=== PATIENT | male | born 1995 | race Caucasian/White ===

== ENCOUNTER 2021-01-23 09:25 | Outpatient (CLI) | payer OTHER, MEDICAID, SELFPAY ==
[2021-01-24 12:53] LABS: COVID-19 RT-PCR UVMMC Result Negative (Negative)
== END 2021-01-23 09:26 | disposition home or self-care (01) ==
LOC: LBO 09:25
PROVIDERS: PCP Family Medicine; Visit Provider Nurse Practitioner Family
DX: Z20.828 Contact with and (suspected) exposure to other viral communicable diseases (principal)
CPT/HCPCS: U0003

== ENCOUNTER 2022-04-15 01:49 | Outpatient (CLI) | payer OTHER, MEDICAID, SELFPAY ==
[2022-04-15 13:40] LABS: Calculated LDL 90 mg/dL (<100); Cholesterol 154 mg/dL (<200); HDL Cholesterol 45 mg/dL (40-60); Triglyceride 96 mg/dL (<150)
== END 2022-04-15 01:50 | disposition home or self-care (01) ==
LOC: LBO 01:49
PROVIDERS: PCP Nurse Practitioner Family; Visit Provider Nurse Practitioner Family
DX: Z13.220 Encounter for screening for lipoid disorders (principal)
CPT/HCPCS: 36415; 80061

== ENCOUNTER 2023-06-17 16:57 | Emergency (ER) | payer OTHER, MEDICAID, SELFPAY ==
[2023-06-17] VITALS (71 sets, daily range): BP systolic 100–146; BP diastolic 52–90; PULSE 143–165; RESP 16–53; TEMP 37.2; O2SAT 93–100
--- NOTE | 2023-06-17 17:00 | RT.EKG_ITS ---
APPROVED REPORT Exam: Resting ECG Reason for Exam: tachycardia Patient Location: E HR:149 bpm ECG Measurements Heart Rate 149 AXIS TN 102 P -20 QRSd 99 QRS 46 QT 351 T 57 QTc 552 Conclusion Sinus tachycardia...rate> 99 Left atrial enlargement...P, P'>60mS, <-0.15mV V1 Prolonged QT interval...QTc >488mS sinus tach, normal axis, rate related lateral st depressions
--- NOTE | 2023-06-17 17:36 | DI.CT_ITS ---
Exam(s) CT CHEST PE ABD PELVIS W EXAM: CT CHEST PE ABD PELVIS W CLINICAL HISTORY: shortness of breath, weakness, abdominal pain, rug. TECHNIQUE: Imaging Protocol: Axial CT angiography was performed with multi-slice acquisition and mu lti-planar and/or 3D reconstructions. CONTRAST MATERIAL: Intravenous: Omnipaque 350 Contrast volume:100 ml COMPARISON: No exams were available for comparison FINDINGS: Exam is limited by patient motion. CHEST: Pulmonary Arteries: No evidence of central filling defects to suggest pulmonary emboli. Distal vess els difficult to evaluate due to motion. Tracheobronchial tree: No bronchiectasis or mucus plugging. Mediastinum and [place]: No dominant adenopathy or fluid collection. Pulmonary parenchyma: Respiratory motion. No consolidation or dominant measurable mass. Pleura: No effusion. No pneumothorax. Heart: The heart is notdilated. No coronary artery calcifications are seen. Aorta: Thoracic aorta non-dilated. Bones: Unremarkable for age. Tubes, Catheters, and Lines: None. ABDOMEN and PELVIS: Liver: Significant motion artifact. Normal size. Normal density. No suspicious measurable mass. Portal, Superior Mesenteric, and Splenic Veins: Unremarkable. Gallbladder and Biliary Tract: No radiodense calculus. No biliary dilatation. Pancreas: Normal density, no abnormal calcifications or inflammatory process. Spleen: Normal. Adrenals: No masses seen. Kidneys: Normal size, contour and axis. No radiodense stones. No obstructive uropathy. No masses seen . Vasculature: Abdominal portion non-dilated. Bowel: No obstruction or bowel wall thickening. Appendix is unremarkable. Normal quantity of stool Peritoneal Cavity: No ascites, collection or mesenteric inflammatory response. Lymph Nodes: Within normal limits. Soft Tissues: Unremarkable. Bladder: Somewhat over distended. Symmetric distention, no gross wall thickening. Reproductive Organs: Unremarkable as visualized. Lymph Nodes: Within normal limits. Bones: Unremarkable for age.. IMPRESSION: 1. Limited exam due to motion. No gross evidence of pulmonary embolism or other acute abnormality in the chest.. 2. No acute abdominal or pelvic process. RADIATION DOSE DELIVERED: 1,535.13mGy.cm Total DLP DATA REPOSITORY: All CT scans at this facility are submitted to the National Radiology Data Registry (NRDR) Dose Index Registry (DIR) with the [employer] (A[employer]). RADIATION OPTIMIZATION: All CT scans at this facility use at least one of these dose optimization te chniques: automated exposure control; mA and/or kV adjustment per patient size (includes targeted exa ms where dose is matched to clinical indication); or iterative reconstruction.
[2023-06-17 17:48] LABS: Abs Immature Grans 0.91 10^3/uL (0.0-0.06); HCT 54.2 % (40.0-50.0); HGB 18.4 g/dL (13.5-17.5); MCH 28.2 pg (27.0-33.0); MCHC 33.9 % (32.0-36.0); MCV 83 fL (80-95); MPV 10.4 fL (8.0-11.0); Platelet Count 447 10^3/uL (130-400); RBC 6.53 10^6/uL (4.36-5.78); RDW 13.3 % (11.8-14.1); RDW-SD 39.1 fL
[2023-06-17 17:48] LABS: BE (Venous) -28 mmol/L (-2-3); HCO3 (Venous) 5 mmol/L (23-28); O2 Sat (Venous) 86 %; TCO2 (Venous) 5 mmol/L (24-29); pCO2 (Venous) 22 mmHg (41-51); pO2 (Venous) 60 mmHg
[2023-06-17 17:52] LABS: pH (Venous) 6.94 (7.31-7.41)
[2023-06-17 17:54] LABS: WBC 38.56 10^3/uL (4.4-10.8)
[2023-06-17 17:59] LABS: Magnesium 2.8 mg/dL (1.8-2.4)
[2023-06-17] MEDS: Lactated Ringers 1,000 ML 1000 ML IV ×2 (18:01→18:05)
[2023-06-17 18:05] LABS: ALT 25 U/L (16-63); AST 6 U/L (15-37); Albumin 5.1 g/dL (3.4-5.0); Alkaline Phosphatase 132 U/L (46-116); Anion Gap 36.3 mmol/L (3-11); BUN 16 mg/dL (7-18); Bilirubin, Total 0.8 mg/dL (0.2-1.0); CO2 7.7 mmol/L (21.0-32.0); CREATININE 2.1 mg/dL (0.70-1.30); Calcium 9.7 mg/dL (8.5-10.1); Chloride 95 mmol/L (98-107); Estimated GFR 43.43 (mL/min/1.73m2); Lipase 61 U/L (16-77); Potassium 4.3 mmol/L (3.5-5.1); Sodium 139 mmol/L (136-145); Total Protein 9.8 g/dL (6.4-8.2)
[2023-06-17] MEDS: cefTRIAXone 2 GM/50 ML BAG IVPB (18:05)
[2023-06-17 18:07] LABS: Glucose 671 mg/dL (74-106)
[2023-06-17] MEDS: Metoclopramide 10 MG/2 ML VIAL IVP ×2 (18:13→20:47)
[2023-06-17] MEDS: Pantoprazole 40 MG VIAL 80 MG IVP (18:20)
[2023-06-17 18:22] LABS: Absolute Lymphocyte Count 2.31 10^3/uL (1.2-3.4); Absolute Monocyte Count 1.54 10^3/uL (0.1-0.8); Absolute Neutrophil Count 34.32 10^3/uL (1.2-6.7); Diff Comment Manual Differential; RBC Morphology Normal
[2023-06-17 18:23] LABS: Promyelocytes % 1
[2023-06-17] MEDS: Normal Saline - Diluent 50 ML VIAL IJ (18:42)
[2023-06-17] MEDS: Omnipaque 350 MG/ML 100 ML BTL IJ (18:43)
[2023-06-17] MEDS: Normal Saline Flush 10 ML SYR IVP (18:44)
[2023-06-17 18:55] LABS: COVID-19 PCR Negative (Negative); Influenza A PCR Negative (Negative); Influenza B PCR Negative (Negative); RSV PCR Negative (Negative)
[2023-06-17 18:57] LABS: Source Nasopharynx
[2023-06-17] MEDS: INSULIN REGULAR IN 0.9 % NACL 100 UNIT/100 ML BAG 10.387 UNIT IV (19:07)
[2023-06-17 19:15] LABS: BE (Venous) -29 mmol/L (-2-3); HCO3 (Venous) 4 mmol/L (23-28); O2 Sat (Venous) 81 %; TCO2 (Venous) 4 mmol/L (24-29); pCO2 (Venous) 21 mmHg (41-51); pO2 (Venous) 54 mmHg
[2023-06-17 19:19] LABS: pH (Venous) 6.89 (7.31-7.41)
[2023-06-17] MEDS: POTASSIUM CHLORIDE/0.45% NACL 1,000 ML 500 MEQ IV ×2 (19:30→23:17)
[2023-06-17 19:34] LABS: Anion Gap 33.4 mmol/L (3-11); BUN 17 mg/dL (7-18); CO2 5.6 mmol/L (21.0-32.0); CREATININE 1.7 mg/dL (0.70-1.30); Calcium 8.6 mg/dL (8.5-10.1); Chloride 100 mmol/L (98-107); Estimated GFR 55.96 (mL/min/1.73m2); Potassium 4.3 mmol/L (3.5-5.1); Sodium 139 mmol/L (136-145)
[2023-06-17 19:35] LABS: Bilirubin Negative (Negative); Blood Small (Negative); Clarity Clear (Clear); Glucose 500 mg/dL (Negative); Ketones >=160 mg/dL (Negative); Leukocyte Esterase Negative (Negative); Nitrite Negative (Negative); Specific Gravity >= 1.030 (1.005-1.025); Urobilinogen 0.2 mg/dL (Up to 0.2); pH 5.5 (5-8)
[2023-06-17 19:38] LABS: Glucose 656 mg/dL (74-106)
[2023-06-17 19:51] LABS: Bacteria Negative HPF (Negative); C & S Indicated? No; Casts 0-2 Hyaline LPF (Negative); Crystals Negative HPF (Negative); Epithelial Cells Negative HPF (Negative); Mucus Negative (Negative); RBC 0-2 HPF (0-2); WBC 0-2 HPF (0-5)
[2023-06-17] MEDS: Normal Saline 1,000 ML 1000 ML IV (20:00)
[2023-06-17] MEDS: Sodium Bicarbonate 50 MEQ/50 ML VIAL 100 MEQ IJ (20:07)
--- NOTE | 2023-06-17 20:30 | DI.RAD_ITS ---
Exam(s) XR PORTABLE CHEST AP POST LINE EXAM: XR PORTABLE CHEST AP POST LINE CLINICAL HISTORY: central line placement TECHNIQUE: 2D digital imaging was performed. COMPARISON: No exams were available for comparison FINDINGS: Exam is limited by poor pulmonary inflation and respiratory motion. Leads overlie the chest. A right internal jugular central venous catheter has been inserted with the tip in the upper right at rium. LUNGS: Clear. No pleural abnormality seen. HEART: Normal size. AORTA: Normal diameter. BONES: Unremarkable for age. Soft tissues: Unremarkable. IMPRESSION: Satisfactory positioning of internal jugular central venous catheter. DATA REPOSITORY: RADIATION DOSE DELIVERED:
--- NOTE | 2023-06-17 20:38 | W.ED.PROC ---
Date of service: 06/17/23 Time of Service: 20:38 Procedures Central Line Placement Right IJ: Time Out Performed: Yes Patient Placed on Monitor/Pulse Ox: Yes MD Prep: mask, gown and gloves Central Line Prep: Chlorhexidine scrub Local Anesthetic: Lidocaine 1% Amount of anesthesia used (mL): 3 Ultrasound Used for Placement: Yes Central Line Lumen Inserted: triple Post Procedure: good blood return, all ports aspirated, flushed, capped and sutured in place with 3-0 nylon Post Procedure X-Ray: tip of catheter in good position Patient Tolerated Procedure: well Complications: none Medical Decision Making Central line placed to aid multiple infusions in critically ill patient with DKA.
[2023-06-17 20:44] LABS: BE (Venous) -29 mmol/L (-2-3); HCO3 (Venous) 3 mmol/L (23-28); O2 Sat (Venous) 91 %; TCO2 (Venous) 3 mmol/L (24-29); pO2 (Venous) 66 mmHg
[2023-06-17 20:46] LABS: pH (Venous) 6.95 (7.31-7.41)
[2023-06-17 20:47] LABS: pCO2 (Venous) 16 mmHg (41-51)
--- NOTE | 2023-06-17 21:17 | DI.VRAD_ITS ---
PROCEDURE INFORMATION: Exam: XR Chest Exam date and time: 06/17/2023 8:40 PM Age: 27 years old Clinical indication: Other: Central line placement TECHNIQUE: Imaging protocol: Radiologic exam of the chest. Views: 1 view. COMPARISON: CT CHEST PE ABD PELVIS W 06/17/2023 6:33 PM FINDINGS: Tubes, catheters and devices: Right IJ central venous catheter in good position with the tip near the cavoatrial junction. Lungs: Lung volumes are low. No active pulmonary infiltrate or significant atelectasis. Pleural spaces: Unremarkable. No pleural effusion. No pneumothorax. Heart/Mediastinum: Unremarkable. No cardiomegaly. Bones/joints: Unremarkable. IMPRESSION: Right IJ central line in good position. Dictated and Authenticated by: Chad White MD. Ordering:BRYSON Islas MD
[2023-06-17 21:22] LABS: Glucose 534 mg/dL (74-106)
[2023-06-17 22:34] LABS: Glucose 451 mg/dL (74-106)
--- NOTE | 2023-06-17 23:24 | W.PM.HP.N ---
Date of service: 06/17/23 Time of Service: 23:25 Assessment and Plan Assessment and plan (1) DKA (diabetic ketoacidosis): Status: Acute Assessment and plan: The diabetic ketoacidosis have been severe. He has not been responding well to intravenous fluids and intravenous bicarbonate. His blood sugars have improved with intravenous fluids and intravenous insulin. He has received both normal saline and half-normal saline with potassium chloride. His urine output has been relatively low. He still appears dehydrated. I discussed the situation with the patient and his parents. I think because of the lack of prompt response to the treatment has been provided that we should transfer the patient to [facility]. I have been in contact with the intensive care team there and they are in agreement with myself that transfer there would be appropriate. They are working on bed availability now. The family is in agreement to have the patient transferred and the patient agrees at this time also. I will give the patient more intravenous fluids and continue the monitoring of his blood sugars and metabolic status and clinical course. He has remained tachycardic although his blood pressure is stable. The patient does agree to have a urinary catheter placed for close monitoring of his urine output. This catheter has been placed. (2) Leukocytosis: Status: Acute Assessment and plan: There is no clear source infectious source for the leukocytosis. I suspect that it is due to the diabetic ketoacidosis. He has been given a dose of ceftriaxone here in the emergency department. History of Present Illness History of Present Illness Chief Complaint: Abdominal pain, nausea and vomiting. Narrative: This 27-year-old male is here with his parents. He lives with them. He has history of high functioning autism, attention deficit disorder and depression. His past medical history is significant for epilepsy as a child but no seizures since age 5. He has had surgeries of tonsillectomy and adenoidectomy. His mother was diagnosed with diabetes at age 7 and is insulin-dependent. His current illness started about 5 days ago when he went to [facility] and vomited after he went there. He had no further vomiting and felt well until yesterday morning when he says his abdomen bothering him some. He developed some nausea and vomited last night. He says he has been drinking extra water over the last couple months and has noted some increased urination for about the same length of time. He had increased nausea and vomiting today and his parents brought him here. He was found to be in diabetic ketoacidosis. There was some coffee ground emesis once here. He has received Normal Saline IV, 1/2 Normal Saline IV with 20 meqKCL/l, IV Ceftriaxone, IV pantoprazole, IV bicarb infusion, IV insulin infusion and repeated lab studies and IV reglan and IV compazine. As noted above he lives with his parents. He occasionally drinks alcohol and does not use tobacco. 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 He has had his COVID boosters and vaccine. He has no allergies. Review of Systems Constitutional Constitutional: Denies chills, Denies fever(s), Denies poor appetite, Denies weakness and Denies weight loss Cardiovascular Cardiovascular: Denies chest pain with activity, Denies syncope, Denies rapid heart rate and Denies dyspnea Respiratory Respiratory: Denies cough, Denies dyspnea and Denies wheezing Gastrointestinal Gastrointestinal: Reports abdominal pain, Denies hematochezia, Denies diarrhea, Denies loose stools, Reports nausea and Reports vomiting Genitourinary Genitourinary: Denies oliguria, Denies difficulty urinating and Reports urinary frequency Musculoskeletal Musculoskeletal: Reports system reviewed and no additional complaints, except as documented Neurologic Neurologic: Denies syncope and Denies weakness Endocrine Endocrine: Reports polyuria Allergic/Immunologic Allergic/Immunologic: Denies wheezing PFSH All Active Problems (Updated 06/17/23 @ 23:57 by OJ Huertas) Acute renal insufficiency (Acute) Leukocytosis (Acute) DKA (diabetic ketoacidosis) (Acute) Obesity (BMI 35.0-39.9 without comorbidity) (Acute) Depression (Chronic 12/17/14) ADHD (Acute) Autism (Acute) Medical History (Updated 06/17/23 @ 23:57 by OJ Huertas) Seizure (12/17/14) Hx as child, but not anymore and no medicine. Surgical History (Updated 08/03/18 @ 14:35 by [email or web address] MO) Tonsillectomy and adenoidectomy Tooth extraction Family History (Updated 02/01/20 @ 11:31 by Louis Pratt) Father Essential hypertension Mother Diabetes age 7 Asthma Brother No problems noted. Maternal Grandfather , age 53 Prostate cancer Paternal Grandfather , age 65 Throat cancer Heart disease Hyperlipidemia Hypertension Maternal Grandmother Hyperlipidemia Hypertension Paternal Grandmother , age 63 Brain cancer Social History (Updated 03/20/23 @ 10:57 by Darlene Gore) Smoking/Tobacco Use Status: Never Second Hand Exposure: Yes Smoking risk assessment performed?: Yes Alcohol Intake: never Drug use: Never Substance use type: does not use Household members: family Housing: house Communication Needs: None Do you need help understanding health information?: Never Pets and animals: Yes Pets and animals: cat(s) and dog(s) Sexually active: No Do you think of yourself as: straight/heterosexual Current gender identity: male What is your relationship status?: refused to answer How often do you talk on the phone with friends or family?: decline to answer How often do you get together with friends or relatives?: decline to answer How often do you attend confucianism or roman catholic services?: decline to answer Do you belong to any clubs or organized social groups?: decline to answer Panel score (0-1 are the most socially isolated patients): 0 What type of physical activity do you participate in: walking Duration: 60-90 minutes/day Frequency: 3-4 times per week [place]ze: No preference Special trinidad needs: No Seatbelt use: sometimes Helmet use: Yes Helmet use: always Drive intox or ride w/intox putaway driver: No Meds Allergies and Home Medications Allergies Allergy/AdvReac Type Severity Reaction Status Date / Time No Known Allergies Allergy Verified 04/02/23 11:13 Home Medications Medication Instructions Recorded Confirmed Type melatonin 10 mg capsule 10 mg PO HS PRN 02/27/20 04/02/23 History fluoxetine 40 mg capsule 40 mg PO DAILY #90 caps 03/13/21 04/02/23 Rx guanfacine PO 04/02/23 04/02/23 History triamcinolone acetonide 0.1 % 1 applic topical BID #30 grams 04/02/23 04/02/23 Rx topical cream Exam Const General: cooperative, well developed, ill appearing and not lethargic Orientation: alert and awake HENMT Other: mouth is dry. Resp Auscultation: clear to auscultation bilaterally, no rales and no wheezes Cardio Rate: tachycardic Rhythm: regular rhythm GI Palpation: soft, no hepatosplenomegaly, not firm and nontender Extrem General: no edema Results Labs 06/18/23 01:55 06/18/23 01:55 Labs: Laboratory Results - last 24 hr 06/17/23 06/17/23 06/17/23 07:05 07:05 17:12 WBC RBC Hgb Hct MCV MCH MCHC RDW Plt Count MPV Immature Gran % Neutrophils % Lymphocytes % Monocytes % Eosinophils % Basophils % Promyelocytes % Nucleated RBC % Absolute Neutrophils Absolute Lymphocytes Absolute Monocytes Absolute Eosinophils Absolute Basophils RBC Morphology VBG pH 6.89 L* VBG pCO2 21 L VBG pO2 54 VBG HCO3 4 L VBG Total CO2 4 L VBG O2 Saturation 81 VBG Base Excess -29 L Sodium 139 139 Potassium 4.3 4.3 Chloride 100 95 L Carbon Dioxide 5.6 L 7.7 L Anion Gap 33.4 H 36.3 H BUN 17 16 Creatinine 1.7 H 2.1 H Est GFR (CKD-EPI 2020) 55.96 43.43 Glucose 656 H* 671 H* Calcium 8.6 9.7 Magnesium Total Bilirubin 0.8 AST 6 L ALT 25 Alkaline Phosphatase 132 H Total Protein 9.8 H Albumin 5.1 H Lipase 61 Urine Color Urine Clarity Urine pH Ur Specific [place] Urine Protein Urine Ketones Urine Blood Urine Nitrite Urine Bilirubin Urine Urobilinogen Ur Leukocyte Esterase Urine RBC Urine WBC Ur Epithelial Cells Urine Crystals Urine Bacteria Urine Casts Urine Mucus Ur Culture Indicated? Urine Glucose COVID-19 Source SARS-CoV-2 (PCR) Influenza Type A (PCR) Influenza Type B (PCR) RSV (PCR) 06/17/23 06/17/23 06/17/23 17:12 17:12 17:40 WBC 38.56 H* RBC 6.53 H Hgb 18.4 H Hct 54.2 H MCV 83 MCH 28.2 MCHC 33.9 RDW 13.3 Plt Count 447 H MPV 10.4 Immature Gran % See Differential Neutrophils % 89.0 Lymphocytes % 6.0 Monocytes % 4.0 Eosinophils % 0.0 Basophils % 0.0 Promyelocytes % 1 Nucleated RBC % 0.0 Absolute Neutrophils 34.32 H Absolute Lymphocytes 2.31 Absolute Monocytes 1.54 H Absolute Eosinophils 0.00 Absolute Basophils 0.00 RBC Morphology Normal VBG pH 6.94 L* VBG pCO2 22 L VBG pO2 60 VBG HCO3 5 L VBG Total CO2 5 L VBG O2 Saturation 86 VBG Base Excess -28 L Sodium Potassium Chloride Carbon Dioxide Anion Gap BUN Creatinine Est GFR (CKD-EPI 2020) Glucose Calcium Magnesium 2.8 H Total Bilirubin AST ALT Alkaline Phosphatase Total Protein Albumin Lipase Urine Color Urine Clarity Urine pH Ur Specific [place] Urine Protein Urine Ketones Urine Blood Urine Nitrite Urine Bilirubin Urine Urobilinogen Ur Leukocyte Esterase Urine RBC Urine WBC Ur Epithelial Cells Urine Crystals Urine Bacteria Urine Casts Urine Mucus Ur Culture Indicated? Urine Glucose COVID-19 Source SARS-CoV-2 (PCR) Influenza Type A (PCR) Influenza Type B (PCR) RSV (PCR) 06/17/23 06/17/23 06/17/23 18:15 19:25 20:40 WBC RBC Hgb Hct MCV MCH MCHC RDW Plt Count MPV Immature Gran % Neutrophils % Lymphocytes % Monocytes % Eosinophils % Basophils % Promyelocytes % Nucleated RBC % Absolute Neutrophils Absolute Lymphocytes Absolute Monocytes Absolute Eosinophils Absolute Basophils RBC Morphology VBG pH VBG pCO2 VBG pO2 VBG HCO3 VBG Total CO2 VBG O2 Saturation VBG Base Excess Sodium Potassium Chloride Carbon Dioxide Anion Gap BUN Creatinine Est GFR (CKD-EPI 2020) Glucose 534 H* Calcium Magnesium Total Bilirubin AST ALT Alkaline Phosphatase Total Protein Albumin Lipase Urine Color Yellow Urine Clarity Clear Urine pH 5.5 Ur Specific [place] >= 1.030 H Urine Protein 100 H Urine Ketones >=160 H Urine Blood Small H Urine Nitrite Negative Urine Bilirubin Negative Urine Urobilinogen 0.2 Ur Leukocyte Esterase Negative Urine RBC 0-2 Urine WBC 0-2 Ur Epithelial Cells Negative Urine Crystals Negative Urine Bacteria Negative Urine Casts 0-2 Hyaline Urine Mucus Negative Ur Culture Indicated? No Urine Glucose 500 H COVID-19 Source Nasopharynx SARS-CoV-2 (PCR) Negative Influenza Type A (PCR) Negative Influenza Type B (PCR) Negative RSV (PCR) Negative 06/17/23 06/17/23 20:40 22:15 WBC RBC Hgb Hct MCV MCH MCHC RDW Plt Count MPV Immature Gran % Neutrophils % Lymphocytes % Monocytes % Eosinophils % Basophils % Promyelocytes % Nucleated RBC % Absolute Neutrophils Absolute Lymphocytes Absolute Monocytes Absolute Eosinophils Absolute Basophils RBC Morphology VBG pH 6.95 L* VBG pCO2 16 L* VBG pO2 66 VBG HCO3 3 L VBG Total CO2 3 L VBG O2 Saturation 91 VBG Base Excess -29 L Sodium Potassium Chloride Carbon Dioxide Anion Gap BUN Creatinine Est GFR (CKD-EPI 2020) Glucose 451 H Calcium Magnesium Total Bilirubin AST ALT Alkaline Phosphatase Total Protein Albumin Lipase Urine Color Urine Clarity Urine pH Ur Specific [place] Urine Protein Urine Ketones Urine Blood Urine Nitrite Urine Bilirubin Urine Urobilinogen Ur Leukocyte Esterase Urine RBC Urine WBC Ur Epithelial Cells Urine Crystals Urine Bacteria Urine Casts Urine Mucus Ur Culture Indicated? Urine Glucose COVID-19 Source SARS-CoV-2 (PCR) Influenza Type A (PCR) Influenza Type B (PCR) RSV (PCR) Last Vital Signs Temp 37.2 C 06/17/23 17:13 Pulse 155 H 06/17/23 22:45 Resp 38 H 06/17/23 22:45 BP 121/76 06/17/23 22:45 Pulse Ox 100 06/17/23 22:45 Time Spent Time spent with Patient: >75 minutes Time was spent: preparing to see the patient(eg.review tests), obtaining and/or reviewing separately otained hiistory, ordering medications,tests, procedures, referring, communicating with other health career development coordinator, indepentently interpreting results and care coordination
[2023-06-17 23:31] LABS: BE (Venous) -26 mmol/L (-2-3); HCO3 (Venous) 5 mmol/L (23-28); O2 Sat (Venous) 88 %; TCO2 (Venous) 5 mmol/L (24-29); pO2 (Venous) 54 mmHg
[2023-06-17 23:33] LABS: pCO2 (Venous) 19 mmHg (41-51); pH (Venous) 7.02 (7.31-7.41)
--- NOTE | 2023-06-17 23:39 | W.ED.GENAD ---
Discharge Plan Disposition Patient Disposition: Admit to [facility] Discharge Details Chief Complaint: Abd Prob Clinical Impression: DKA (diabetic ketoacidosis), Leukocytosis, Autism, Acute renal insufficiency Primary Care Provider: Troy Anderson ED Provider: Janel Villalobos Home Meds and New Rx's Prescriptions: No Action fluoxetine 40 mg capsule 40 mg PO DAILY Qty: 90 3RF guanfacine PO triamcinolone acetonide 0.1 % cream 1 applic topical BID Qty: 30 0RF melatonin 10 mg capsule 10 mg PO HS PRN Medical Decision Making 27-year-old male presenting with weakness, slurred speech, increased work of breathing, vomiting since last night, fingerstick blood glucose ordered, blood glucose 671 Suspect diabetic ketoacidosis, patient started with 2 lines and placed on telemetry monitoring EKG with QTc prolongation and sinus tachycardia VBG was ordered that shows pH of 6.95 Patient was given 2 L of LR, 1 L of NS, potassium of 4.3 Given 2 L of 20 mEq of K one half normal saline boluses of 500 an hour Repeat serum glucose was ordered every hour after initiating insulin 0.1 units no /kg per hour In all, patient has received approximately 5 L of fluid VBG repeat did show a declining pH, from 6.95-6.89, I initiated bicarb and saline, this will be an additional 1 L of fluid Patient is not showing evidence of volume overload, he has had approximately 1400 cc of output, will order bladder scan His pH is improved to 7.02 but it is coming up very slowly, he remains tachycardic and acidotic Central line was placed by my attending, please see his documentation for additional medication management Leukocytosis, 38,000, shift of 34,000 chloride of 110, sodium mildly elevated at 147, potassium of 3.7, carbon dioxide 6.6, gap of 30.4, mildly improved creatinine of 1.7, mildly improved from 2.0, repeat glucose 397 Initial lactate 5.8, will repeat urinalysis does not show evidence of infection, CT chest abdomen and pelvis does not show evidence of acute infectious etiology of patient's symptoms Has had persistent intermittent vomiting, given 20 mg of Reglan and 5 mg of Compazine, caution was used when administering antiemetics secondary to mild prolongation of QTc Approximately 2 hours of critical care time was ordered secondary to this acutely ill patient, he will go into the intensive care unit under the care of Dr Mitra CASIANO General Date/Time Provider Initiated Documentation: 06/17/23 17:33. HPI Narrative: This 27-year-old male presents with past medical history of autism spectrum and ADHD with reports of some nausea and vomiting on Wednesday of this week followed by persistent nausea and vomiting with epigastric pain since 10:00 last evening. He denies any chest pain. He states he feels slightly short of breath. Denies any fever or chills. States he feels very weak. He denies any blood in vomitus. Related Data Home Medications Medication Instructions Recorded Confirmed melatonin 10 mg capsule 10 mg PO HS PRN 02/27/20 04/02/23 fluoxetine 40 mg capsule 40 mg PO DAILY #90 caps 03/13/21 04/02/23 guanfacine PO 04/02/23 04/02/23 triamcinolone acetonide 0.1 % 1 applic topical BID #30 grams 04/02/23 04/02/23 topical cream Previous Rx's Medication Instructions Recorded fluoxetine 40 mg capsule 40 mg PO DAILY #90 caps 03/13/21 triamcinolone acetonide 0.1 % 1 applic topical BID #30 grams 04/02/23 topical cream Allergies Allergy/AdvReac Type Severity Reaction Status Date / Time No Known Allergies Allergy Verified 04/02/23 11:13 General Stated Complaint: Abd Prob YOAN: 2 PFSH All Active Problems (Updated 06/17/23 @ 23:57 by OJ Huertas) Acute renal insufficiency (Acute) Leukocytosis (Acute) DKA (diabetic ketoacidosis) (Acute) Obesity (BMI 35.0-39.9 without comorbidity) (Acute) Depression (Chronic 12/17/14) ADHD (Acute) Autism (Acute) Medical History (Updated 06/17/23 @ 23:57 by OJ Huertas) Seizure (12/17/14) Hx as child, but not anymore and no medicine. Surgical History (Updated 08/03/18 @ 14:35 by [employer] ME) Tonsillectomy and adenoidectomy Tooth extraction Family History (Updated 02/01/20 @ 11:31 by Louis Pratt) Father Essential hypertension Mother Diabetes age 7 Asthma Brother No problems noted. Maternal Grandfather , age 53 Prostate cancer Paternal Grandfather , age 65 Throat cancer Heart disease Hyperlipidemia Hypertension Maternal Grandmother Hyperlipidemia Hypertension Paternal Grandmother , age 63 Brain cancer Social History (Updated 03/20/23 @ 10:57 by Darlene Gore) Smoking/Tobacco Use Status: Never Second Hand Exposure: Yes Smoking risk assessment performed?: Yes Alcohol Intake: never Drug use: Never Substance use type: does not use Household members: family Housing: house Communication Needs: None Do you need help understanding health information?: Never Pets and animals: Yes Pets and animals: cat(s) and dog(s) Sexually active: No Do you think of yourself as: straight/heterosexual Current gender identity: male What is your relationship status?: refused to answer How often do you talk on the phone with friends or family?: decline to answer How often do you get together with friends or relatives?: decline to answer How often do you attend restorationism or tenriism services?: decline to answer Do you belong to any clubs or organized social groups?: decline to answer Panel score (0-1 are the most socially isolated patients): 0 What type of physical activity do you participate in: walking Duration: 60-90 minutes/day Frequency: 3-4 times per week Trin[place]/Mandaeism: No preference Special trinidad needs: No Seatbelt use: sometimes Helmet use: Yes Helmet use: always Drive intox or ride w/intox emt driver: No Course Vital Signs Vital signs: Vital Signs Pulse Oximetry 100 06/17/23 17:08 Temperature 37.2 C 06/17/23 17:13 Temperature Source Oral 06/17/23 17:13 Pulse 155 H 06/17/23 22:45 Pulse 157 H 06/17/23 22:45 Respiratory Rate 38 H 06/17/23 22:45 Respiratory Effort Normal 06/17/23 17:24 Blood Pressure 121/76 06/17/23 22:45 Blood Pressure Mean 86 06/17/23 22:45 Blood Pressure Position Sitting 06/17/23 17:13 Pulse Oximetry 100 06/17/23 22:45 Oxygen Delivery Method Room Air 06/17/23 17:13 Oxygen Flow Rate 0 06/17/23 17:13 Pain Level 8 06/17/23 17:13 Lab/Test Results Lab/Test Results: 06/17/23 07:05 Blood Blood Culture - Pending 06/17/23 17:40 Blood Blood Culture - Pending Laboratory Tests Range/Units 06/17/23 06/17/23 06/17/23 07:05 07:05 17:12 WBC (4.4-10.8) 10^3/uL RBC (4.36-5.78) 10^6/uL Hgb (13.5-17.5) g/dL Hct (40.0-50.0) % MCV (80-95) fL MCH (27.0-33.0) pg MCHC (32.0-36.0) % RDW (11.8-14.1) % Plt Count (130-400) 10^3/uL MPV (8.0-11.0) fL Immature Gran % Neutrophils % Lymphocytes % Monocytes % Eosinophils % Basophils % Promyelocytes % Nucleated RBC % (0.0-0.3) % Absolute Neutrophils (1.2-6.7) 10^3/uL Absolute Lymphocytes (1.2-3.4) 10^3/uL Absolute Monocytes (0.1-0.8) 10^3/uL Absolute Eosinophils (0.0-0.7) 10^3/uL Absolute Basophils (0.0-0.2) 10^3/uL RBC Morphology VBG pH (7.31-7.41) 6.89 L* VBG pCO2 (41-51) mmHg 21 L VBG pO2 mmHg 54 VBG HCO3 (23-28) mmol/L 4 L VBG Total CO2 (24-29) mmol/L 4 L VBG O2 Saturation % 81 VBG Base Excess (-2-3) mmol/L -29 L Sodium (136-145) mmol/L 139 139 Potassium (3.5-5.1) mmol/L 4.3 4.3 Chloride (98-107) mmol/L 100 95 L Carbon Dioxide (21.0-32.0) mmol/L 5.6 L 7.7 L Anion Gap (3-11) mmol/L 33.4 H 36.3 H BUN (7-18) mg/dL 17 16 Creatinine (0.70-1.30) mg/dL 1.7 H 2.1 H Est GFR (CKD-EPI 2020) (mL/min/1.73m2) 55.96 43.43 Glucose (74-106) mg/dL 656 H* 671 H* Calcium (8.5-10.1) mg/dL 8.6 9.7 Magnesium (1.8-2.4) mg/dL Total Bilirubin (0.2-1.0) mg/dL 0.8 AST (15-37) U/L 6 L ALT (16-63) U/L 25 Alkaline Phosphatase (46-116) U/L 132 H Total Protein (6.4-8.2) g/dL 9.8 H Albumin (3.4-5.0) g/dL 5.1 H Lipase (16-77) U/L 61 Urine Color (Yellow) Urine Clarity (Clear) Urine pH (5-8) Ur Specific [place] (1.005-1.025) Urine Protein (Negative) mg/dL Urine Ketones (Negative) mg/dL Urine Blood (Negative) Urine Nitrite (Negative) Urine Bilirubin (Negative) Urine Urobilinogen (Up to 0.2) mg/dL Ur Leukocyte Esterase (Negative) Urine RBC (0-2) HPF Urine WBC (0-5) HPF Ur Epithelial Cells (Negative) HPF Urine Crystals (Negative) HPF Urine Bacteria (Negative) HPF Urine Casts (Negative) LPF Urine Mucus (Negative) Ur Culture Indicated? Urine Glucose (Negative) mg/dL COVID-19 Source SARS-CoV-2 (PCR) (Negative) Influenza Type A (PCR) (Negative) Influenza Type B (PCR) (Negative) RSV (PCR) (Negative) Range/Units 06/17/23 06/17/23 06/17/23 17:12 17:12 17:40 WBC (4.4-10.8) 10^3/uL 38.56 H* RBC (4.36-5.78) 10^6/uL 6.53 H Hgb (13.5-17.5) g/dL 18.4 H Hct (40.0-50.0) % 54.2 H MCV (80-95) fL 83 MCH (27.0-33.0) pg 28.2 MCHC (32.0-36.0) % 33.9 RDW (11.8-14.1) % 13.3 Plt Count (130-400) 10^3/uL 447 H MPV (8.0-11.0) fL 10.4 Immature Gran % See Differential Neutrophils % 89.0 Lymphocytes % 6.0 Monocytes % 4.0 Eosinophils % 0.0 Basophils % 0.0 Promyelocytes % 1 Nucleated RBC % (0.0-0.3) % 0.0 Absolute Neutrophils (1.2-6.7) 10^3/uL 34.32 H Absolute Lymphocytes (1.2-3.4) 10^3/uL 2.31 Absolute Monocytes (0.1-0.8) 10^3/uL 1.54 H Absolute Eosinophils (0.0-0.7) 10^3/uL 0.00 Absolute Basophils (0.0-0.2) 10^3/uL 0.00 RBC Morphology Normal VBG pH (7.31-7.41) 6.94 L* VBG pCO2 (41-51) mmHg 22 L VBG pO2 mmHg 60 VBG HCO3 (23-28) mmol/L 5 L VBG Total CO2 (24-29) mmol/L 5 L VBG O2 Saturation % 86 VBG Base Excess (-2-3) mmol/L -28 L Sodium (136-145) mmol/L Potassium (3.5-5.1) mmol/L Chloride (98-107) mmol/L Carbon Dioxide (21.0-32.0) mmol/L Anion Gap (3-11) mmol/L BUN (7-18) mg/dL Creatinine (0.70-1.30) mg/dL Est GFR (CKD-EPI 2020) (mL/min/1.73m2) Glucose (74-106) mg/dL Calcium (8.5-10.1) mg/dL Magnesium (1.8-2.4) mg/dL 2.8 H Total Bilirubin (0.2-1.0) mg/dL AST (15-37) U/L ALT (16-63) U/L Alkaline Phosphatase (46-116) U/L Total Protein (6.4-8.2) g/dL Albumin (3.4-5.0) g/dL Lipase (16-77) U/L Urine Color (Yellow) Urine Clarity (Clear) Urine pH (5-8) Ur Specific [place] (1.005-1.025) Urine Protein (Negative) mg/dL Urine Ketones (Negative) mg/dL Urine Blood (Negative) Urine Nitrite (Negative) Urine Bilirubin (Negative) Urine Urobilinogen (Up to 0.2) mg/dL Ur Leukocyte Esterase (Negative) Urine RBC (0-2) HPF Urine WBC (0-5) HPF Ur Epithelial Cells (Negative) HPF Urine Crystals (Negative) HPF Urine Bacteria (Negative) HPF Urine Casts (Negative) LPF Urine Mucus (Negative) Ur Culture Indicated? Urine Glucose (Negative) mg/dL COVID-19 Source SARS-CoV-2 (PCR) (Negative) Influenza Type A (PCR) (Negative) Influenza Type B (PCR) (Negative) RSV (PCR) (Negative) Range/Units 06/17/23 06/17/23 06/17/23 18:15 19:25 20:40 WBC (4.4-10.8) 10^3/uL RBC (4.36-5.78) 10^6/uL Hgb (13.5-17.5) g/dL Hct (40.0-50.0) % MCV (80-95) fL MCH (27.0-33.0) pg MCHC (32.0-36.0) % RDW (11.8-14.1) % Plt Count (130-400) 10^3/uL MPV (8.0-11.0) fL Immature Gran % Neutrophils % Lymphocytes % Monocytes % Eosinophils % Basophils % Promyelocytes % Nucleated RBC % (0.0-0.3) % Absolute Neutrophils (1.2-6.7) 10^3/uL Absolute Lymphocytes (1.2-3.4) 10^3/uL Absolute Monocytes (0.1-0.8) 10^3/uL Absolute Eosinophils (0.0-0.7) 10^3/uL Absolute Basophils (0.0-0.2) 10^3/uL RBC Morphology VBG pH (7.31-7.41) VBG pCO2 (41-51) mmHg VBG pO2 mmHg VBG HCO3 (23-28) mmol/L VBG Total CO2 (24-29) mmol/L VBG O2 Saturation % VBG Base Excess (-2-3) mmol/L Sodium (136-145) mmol/L Potassium (3.5-5.1) mmol/L Chloride (98-107) mmol/L Carbon Dioxide (21.0-32.0) mmol/L Anion Gap (3-11) mmol/L BUN (7-18) mg/dL Creatinine (0.70-1.30) mg/dL Est GFR (CKD-EPI 2020) (mL/min/1.73m2) Glucose (74-106) mg/dL 534 H* Calcium (8.5-10.1) mg/dL Magnesium (1.8-2.4) mg/dL Total Bilirubin (0.2-1.0) mg/dL AST (15-37) U/L ALT (16-63) U/L Alkaline Phosphatase (46-116) U/L Total Protein (6.4-8.2) g/dL Albumin (3.4-5.0) g/dL Lipase (16-77) U/L Urine Color (Yellow) Yellow Urine Clarity (Clear) Clear Urine pH (5-8) 5.5 Ur Specific [place] (1.005-1.025) >= 1.030 H Urine Protein (Negative) mg/dL 100 H Urine Ketones (Negative) mg/dL >=160 H Urine Blood (Negative) Small H Urine Nitrite (Negative) Negative Urine Bilirubin (Negative) Negative Urine Urobilinogen (Up to 0.2) mg/dL 0.2 Ur Leukocyte Esterase (Negative) Negative Urine RBC (0-2) HPF 0-2 Urine WBC (0-5) HPF 0-2 Ur Epithelial Cells (Negative) HPF Negative Urine Crystals (Negative) HPF Negative Urine Bacteria (Negative) HPF Negative Urine Casts (Negative) LPF 0-2 Hyaline Urine Mucus (Negative) Negative Ur Culture Indicated? No Urine Glucose (Negative) mg/dL 500 H COVID-19 Source Nasopharynx SARS-CoV-2 (PCR) (Negative) Negative Influenza Type A (PCR) (Negative) Negative Influenza Type B (PCR) (Negative) Negative RSV (PCR) (Negative) Negative Range/Units 06/17/23 06/17/23 06/17/23 20:40 22:15 23:27 WBC (4.4-10.8) 10^3/uL RBC (4.36-5.78) 10^6/uL Hgb (13.5-17.5) g/dL Hct (40.0-50.0) % MCV (80-95) fL MCH (27.0-33.0) pg MCHC (32.0-36.0) % RDW (11.8-14.1) % Plt Count (130-400) 10^3/uL MPV (8.0-11.0) fL Immature Gran % Neutrophils % Lymphocytes % Monocytes % Eosinophils % Basophils % Promyelocytes % Nucleated RBC % (0.0-0.3) % Absolute Neutrophils (1.2-6.7) 10^3/uL Absolute Lymphocytes (1.2-3.4) 10^3/uL Absolute Monocytes (0.1-0.8) 10^3/uL Absolute Eosinophils (0.0-0.7) 10^3/uL Absolute Basophils (0.0-0.2) 10^3/uL RBC Morphology VBG pH (7.31-7.41) 6.95 L* 7.02 L* VBG pCO2 (41-51) mmHg 16 L* 19 L* VBG pO2 mmHg 66 54 VBG HCO3 (23-28) mmol/L 3 L 5 L VBG Total CO2 (24-29) mmol/L 3 L 5 L VBG O2 Saturation % 91 88 VBG Base Excess (-2-3) mmol/L -29 L -26 L Sodium (136-145) mmol/L Potassium (3.5-5.1) mmol/L Chloride (98-107) mmol/L Carbon Dioxide (21.0-32.0) mmol/L Anion Gap (3-11) mmol/L BUN (7-18) mg/dL Creatinine (0.70-1.30) mg/dL Est GFR (CKD-EPI 2020) (mL/min/1.73m2) Glucose (74-106) mg/dL 451 H Calcium (8.5-10.1) mg/dL Magnesium (1.8-2.4) mg/dL Total Bilirubin (0.2-1.0) mg/dL AST (15-37) U/L ALT (16-63) U/L Alkaline Phosphatase (46-116) U/L Total Protein (6.4-8.2) g/dL Albumin (3.4-5.0) g/dL Lipase (16-77) U/L Urine Color (Yellow) Urine Clarity (Clear) Urine pH (5-8) Ur Specific [place] (1.005-1.025) Urine Protein (Negative) mg/dL Urine Ketones (Negative) mg/dL Urine Blood (Negative) Urine Nitrite (Negative) Urine Bilirubin (Negative) Urine Urobilinogen (Up to 0.2) mg/dL Ur Leukocyte Esterase (Negative) Urine RBC (0-2) HPF Urine WBC (0-5) HPF Ur Epithelial Cells (Negative) HPF Urine Crystals (Negative) HPF Urine Bacteria (Negative) HPF Urine Casts (Negative) LPF Urine Mucus (Negative) Ur Culture Indicated? Urine Glucose (Negative) mg/dL COVID-19 Source SARS-CoV-2 (PCR) (Negative) Influenza Type A (PCR) (Negative) Influenza Type B (PCR) (Negative) RSV (PCR) (Negative) Critical Care Time Critical Care Time Attestation: Approximately 90 minutes of critical care time secondary to telemetry monitoring, intensive glucose monitoring, bicarb administration, diagnostic lab interpretation and review, diagnostic imaging interpretation and review, IV fluid administration, IV insulin administration infusion, airway monitoring, and intensive care admission
[2023-06-17 23:46] LABS: Anion Gap 30.4 mmol/L (3-11); BUN 16 mg/dL (7-18); CO2 6.6 mmol/L (21.0-32.0); CREATININE 1.7 mg/dL (0.70-1.30); Calcium 8.1 mg/dL (8.5-10.1); Chloride 110 mmol/L (98-107); Estimated GFR 55.96 (mL/min/1.73m2); Glucose 397 mg/dL (74-106); Potassium 3.7 mmol/L (3.5-5.1); Sodium 147 mmol/L (136-145)
[2023-06-17] MEDS: Prochlorperazine 10 MG/2 ML VIAL 5 MG IVP (23:50)
[2023-06-18] VITALS (65 sets, daily range): BP systolic 117–127; BP diastolic 66–80; PULSE 122–155; RESP 18–38; TEMP 37.4; O2SAT 97–100
[2023-06-18] MEDS: Normal Saline 1,000 ML 1000 ML IV ×2 (00:10→02:27)
[2023-06-18 00:49] LABS: BE (Venous) -25 mmol/L (-2-3); HCO3 (Venous) 5 mmol/L (23-28); pO2 (Venous) 55 mmHg
[2023-06-18 00:51] LABS: pCO2 (Venous) 18 mmHg (41-51); pH (Venous) 7.08 (7.31-7.41)
[2023-06-18 01:03] LABS: Glucose 321 mg/dL (74-106)
[2023-06-18 02:00] LABS: Abs Immature Grans 0.49 10^3/uL (0.0-0.06); Absolute Basophil Count 0.09 10^3/uL (0.0-0.2); Absolute Neutrophil Count 25.34 10^3/uL (1.2-6.7); BE (Venous) -25 mmol/L (-2-3); Basophils % 0.3; HCO3 (Venous) 6 mmol/L (23-28); HCT 43.1 % (40.0-50.0); Immature Grans % 1.6; Lymphocytes % 8.7; MCH 27.4 pg (27.0-33.0); MCHC 33.6 % (32.0-36.0); MCV 82 fL (80-95); MPV 9.8 fL (8.0-11.0); Neutrophils % 81.4; O2 Sat (Venous) 88 %; Platelet Count 260 10^3/uL (130-400); RBC 5.29 10^6/uL (4.36-5.78); RDW 13.2 % (11.8-14.1); RDW-SD 38.7 fL; TCO2 (Venous) 5 mmol/L (24-29); pO2 (Venous) 49 mmHg
[2023-06-18 02:03] LABS: Absolute Lymphocyte Count 2.71 10^3/uL (1.2-3.4); Absolute Monocyte Count 2.49 10^3/uL (0.1-0.8)
[2023-06-18 02:04] LABS: WBC 31.13 10^3/uL (4.4-10.8)
[2023-06-18 02:05] LABS: HGB 14.5 g/dL (13.5-17.5)
[2023-06-18 02:06] LABS: pCO2 (Venous) 19 mmHg (41-51); pH (Venous) 7.07 (7.31-7.41)
[2023-06-18 02:12] LABS: Anion Gap 26.9 mmol/L (3-11); BUN 12 mg/dL (7-18); CO2 7.1 mmol/L (21.0-32.0); CREATININE 1.3 mg/dL (0.70-1.30); Calcium 7.5 mg/dL (8.5-10.1); Chloride 114 mmol/L (98-107); Estimated GFR 77.22 (mL/min/1.73m2); Glucose 297 mg/dL (74-106); Potassium 3.5 mmol/L (3.5-5.1); RBC Morphology Normal; Sodium 148 mmol/L (136-145)
[2023-06-18 02:13] LABS: Diff Comment Agrees w/ Instrument
[2023-06-18] MEDS: POTASSIUM CHLORIDE/0.45% NACL 1,000 ML 250 MEQ IV (03:15)
[2023-06-18] MEDS: INSULIN REGULAR IN 0.9 % NACL 100 UNIT/100 ML BAG 9.8 UNIT IV (04:00)
[2023-06-18 04:09] LABS: Anion Gap 24.1 mmol/L (3-11); BUN 10 mg/dL (7-18); CO2 8.9 mmol/L (21.0-32.0); CREATININE 1.2 mg/dL (0.70-1.30); Calcium 7.6 mg/dL (8.5-10.1); Chloride 116 mmol/L (98-107); Glucose 222 mg/dL (74-106); Potassium 3.3 mmol/L (3.5-5.1); Sodium 149 mmol/L (136-145)
[2023-06-18 04:19] LABS: Troponin I < 50 ng/L (<or=60)
[2023-06-18] MEDS: POTASSIUM CHLORIDE 10 MEQ/100 ML BAG 100 MEQ IVPB ×2 (04:51→05:39)
[2023-06-18] MEDS: DEXTROSE 5%-0.45% SALINE 1,000 ML 250 ML IV (04:51)
[2023-06-18 05:11] LABS: BE (Venous) -21 mmol/L (-2-3); HCO3 (Venous) 8 mmol/L (23-28); O2 Sat (Venous) 90 %; TCO2 (Venous) 8 mmol/L (24-29); pCO2 (Venous) 22 mmHg (41-51); pO2 (Venous) 48 mmHg
[2023-06-18 05:16] LABS: pH (Venous) 7.16 (7.31-7.41)
== END 2023-06-18 06:18 | disposition short-term general hospital (02) ==
PROVIDERS: Family Medicine; Emergency Provider Physician Assistant; PCP Nurse Practitioner Family
DX: E11.10 Type 2 diabetes mellitus with ketoacidosis without coma (principal); D72.829 Elevated white blood cell count, unspecified; N28.9 Disorder of kidney and ureter, unspecified; F84.0 Autistic disorder
CPT/HCPCS: 36415; 36416; 36556; 51702; 71045; 71275; 74177; 80048; 80053; 82805; 82947; 82962; 83690; 87040; 87637; 93005; 96365; 96366; 96367; 96375; 96376; 99291; 99292; 81003; 81015; 83735; 84484; 85025; 93010; 99223; J0780; J2765; J3480; J3490

== ENCOUNTER 2023-07-16 14:02 | Emergency (ER) | payer OTHER, MEDICAID, SELFPAY ==
[2023-07-16 14:05] VITALS: BP 133/75; PULSE 121; RESP 18; TEMP 36.9; O2SAT 96
--- NOTE | 2023-07-16 14:15 | RT.EKG_ITS ---
APPROVED REPORT Exam: Resting ECG Reason for Exam: seizure Patient Location: E HR:109 bpm ECG Measurements Heart Rate 109 AXIS [place] 162 P 46 QRSd 105 QRS 71 QT 352 T -33 QTc 476 Conclusion Sinus tachycardia...rate> 99 Borderline T abnormalities, diffuse leads...T flat/neg Sinus tachycardia. When compared to prior 06/17/23 decreased heart rate is noted. WD
[2023-07-16] MEDS: Normal Saline 1,000 ML 1000 ML IV (14:25)
--- NOTE | 2023-07-16 14:27 | ED.GENADUL_ITS ---
Discharge Plan Disposition Patient Disposition: Home Condition: Stable Discharge Details Clinical Impression: Seizure, Diabetes type I Primary Care Provider: Troy Anderson ED Provider: Graciela Ellsworth Home Meds and New Rx's Prescriptions: No Action fluoxetine 40 mg capsule 40 mg PO DAILY Qty: 90 3RF guanfacine PO Rx Instructions: 20 mg ER per [facility] melatonin 10 mg capsule 10 mg PO HS PRN (DME) Dexcom G7 Sensor Device See Rx Instructions .Route Qty: 1 3RF Rx Instructions: Continuous triamcinolone acetonide 0.1 % cream 1 applic topical BID Qty: 30 3RF insulin lispro [Humalog Ananth KwikPen U-100] 100 unit/mL insulin pen, half- unit 1 sliding scale dose subcut USEASDIRECTD Rx Instructions: per [facility] 1-4 units four times a day insulin degludec [Tresiba U-100 Insulin] 100 unit/mL solution See Rx Instructions subcut DAILY Rx Instructions: 20-26 units subcutaneously daily; per [facility] discharge Discharge Instructions Instructions: Recurrent Seizures in Adults (ED) Discharge Data Discharge Physician: Graciela Ellsworth Medical Decision Making 27-year-old male with recent diagnosis of type 1 diabetes presents for evaluation after seizure. At time my evaluation he is amnestic of some events from today but he is awake and alert. He is neurologically intact. Prehospital blood sugar was 65. At time of ED arrival blood sugars in the 80s. At time of my evaluation his blood sugar is over 100 on his monitor. On review of prior records he does have a childhood diagnosis of seizures. He has been off of medications for quite some time. After ED visit patient's heart rate did improve. He continued to improve. CT head negative. Neurology consulted to determine whether medication should be started. Signed out to OJ Villalobos with neurology consultation pending. HPI General Date/Time Provider Initiated Documentation: 07/16/23 14:03 . HPI Narrative: 27-year-old male with a recent diagnosis of type 1 diabetes, history of autism, seizure disorder as a child presents for evaluation after seizure. At time my evaluation patient is postictal. He is not clear on all of the events today. He remembers that he went to go visit his grandmother. He states that he did eat this morning. He was evidently found at a store unresponsive having had a seizure. He does not remember the last time he had a seizure. He thinks that he may have been 5 years old. He does not have an insulin pump. He injects insulin when he needs it. He denies any recent illness. Denies any chest pain or shortness of breath. No cough or cold. No numbness or tingling in his extremities. Denies any head pain. Denies any alcohol or recreational drug use. He is not on any seizure medications. Related Data Home Medications Medication Instructions Recorded Confirmed melatonin 10 mg capsule 10 mg PO HS PRN 02/27/20 07/02/23 fluoxetine 40 mg capsule 40 mg PO DAILY #90 caps 03/13/21 07/02/23 insulin degludec 100 unit/mL See Rx Instructions subcut DAILY 06/25/23 07/02/23 subcutaneous solution (Tresiba U-100 Insulin) insulin lispro 100 unit/mL 1 sliding scale dose subcut 06/25/23 07/02/23 subcutaneous half-unit pen USEASDIRECTD (Humalog Ananth KwikPen (U-100)) blood-glucose sensor (Dexcom G7 #1 ea 07/02/23 07/02/23 Sensor device) guanfacine PO 07/02/23 07/02/23 triamcinolone acetonide 0.1 % 1 applic topical BID #30 grams 07/02/23 07/02/23 topical cream Previous Rx's Medication Instructions Recorded fluoxetine 40 mg capsule 40 mg PO DAILY #90 caps 03/13/21 blood-glucose sensor (Dexcom G7 #1 ea 07/02/23 Sensor device) triamcinolone acetonide 0.1 % 1 applic topical BID #30 grams 07/02/23 topical cream Allergies Allergy/AdvReac Type Severity Reaction Status Date / Time No Known Allergies Allergy Verified 07/02/23 13:36 General Stated Complaint: Seizure YOAN: 3 Review of Systems Narrative: Remainder of review of systems otherwise negative except for as in the HPI x10. PFSH All Active Problems (Updated 07/16/23 @ 15:48 by Graciela Ellsworth MD) Seizure (Acute) Diabetes type I (Acute) Acute renal insufficiency (Acute) Leukocytosis (Acute) DKA (diabetic ketoacidosis) (Acute) Obesity (BMI 35.0-39.9 without comorbidity) (Acute) Depression (Chronic 12/17/14) ADHD (Acute) Autism (Acute) Medical History Seizure (12/17/14) Hx as child, but not anymore and no medicine. Surgical History Tonsillectomy and adenoidectomy Tooth extraction Family History Father Essential hypertension Mother Diabetes age 7 Asthma Brother No problems noted. Maternal Grandfather , age 53 Prostate cancer Paternal Grandfather , age 65 Throat cancer Heart disease Hyperlipidemia Hypertension Maternal Grandmother Hyperlipidemia Hypertension Paternal Grandmother , age 63 Brain cancer Social History Smoking/Tobacco Use Status: Never Second Hand Exposure: Yes Smoking risk assessment performed?: Yes Alcohol Intake: never Drug use: Never Substance use type: does not use Household members: family Housing: house Communication Needs: None Do you need help understanding health information?: Never Pets and animals: Yes Pets and animals: cat(s) and dog(s) Sexually active: No Do you think of yourself as: straight/heterosexual Current gender identity: male What is your relationship status?: refused to answer How often do you talk on the phone with friends or family?: decline to answer How often do you get together with friends or relatives?: decline to answer How often do you attend voodoo or anabaptism services?: decline to answer Do you belong to any clubs or organized social groups?: decline to answer Panel score (0-1 are the most socially isolated patients): 0 What type of physical activity do you participate in: walking Duration: 60-90 minutes/day Frequency: 3-4 times per week Trin[place]/Jewish: No preference Special trinidad needs: No Seatbelt use: sometimes Helmet use: Yes Helmet use: always Drive intox or ride w/intox intermodal truck driver: No Exam Narrative Exam Narrative: General: non-toxic, no respiratory distress, comfortable HEENT: normocephalic, atraumatic, lids and lashes normal, PERRL, EOMI, anicteric sclera, no conjunctival injection, moist oral mucosa Card: Tachycardic, regular, S1S2, no murmurs, rubs, or gallops Lungs: good air entry, clear to auscultation bilaterally. no wheezes, rales, rhonchi, or retractions Abd: soft, non-tender, non-distended, normal bowel sounds, no rebound or guarding, no peritoneal signs Musculoskeletal: full range of motion of arms and legs, no tenderness to palpation. no clubbing, cyanosis, or edema Neurologic: Neurologic exam: GSC 15, CN 2-12 intact bilaterally, speech normal, strength normal, sensation intact distally in all four extremities, 2+ biceps tendon reflexes, normal finger to nose, normal rapid alternating movements, no pronator drift Psych: alert and oriented, but amnestic of some events from today Skin: no petechiae, no lesions, warm and dry Course Vital Signs Vital signs: Vital Signs Temperature 36.9 C 07/16/23 14:05 Pulse 121 H 07/16/23 14:05 Respiratory Rate 18 07/16/23 14:05 Blood Pressure 133/75 07/16/23 14:05 Pulse Oximetry 96 07/16/23 14:05 Temperature 36.9 C 07/16/23 14:05 Temperature Source Oral 07/16/23 14:05 Pulse 121 H 07/16/23 14:05 Respiratory Rate 18 07/16/23 14:05 Respiratory Effort Normal 07/16/23 14:08 Blood Pressure 133/75 07/16/23 14:05 Blood Pressure Position Sitting 07/16/23 14:05 Pulse Oximetry 96 07/16/23 14:05 Oxygen Delivery Method Room Air 07/16/23 14:05 Oxygen Flow Rate 0 07/16/23 14:05 Sign Out Sign Out Data: Sign Out Comment: 27-year-old male with history of autism, childhood seizure disorder, and recent diagnosis of type 1 diabetes presents for evaluation after seizure. Blood glucose on scene was 60s. On ED arrival patient's blood sugar was 80. He was neurologically intact but confused. Given long time since prior seizure as well as possible head injury CT head was ordered. Patient was tachycardic upon arrival. Heart rate has been improving. Awaiting CT head and reassessment. Last updated by Graciela Ellsworth MD at 07/16/23 15:10
[2023-07-16 14:30] LABS: BE (Venous) -8 mmol/L (-2-3); HCO3 (Venous) 18 mmol/L (23-28); O2 Sat (Venous) 85 %; TCO2 (Venous) 17 mmol/L (24-29); pCO2 (Venous) 38 mmHg (41-51); pH (Venous) 7.29 (7.31-7.41); pO2 (Venous) 53 mmHg
[2023-07-16 14:31] LABS: Abs Immature Grans 0.02 10^3/uL (0.0-0.06); Absolute Eosinophil Count 0.52 10^3/uL (0.0-0.7); Absolute Lymphocyte Count 4.42 10^3/uL (1.2-3.4); Absolute Neutrophil Count 4.64 10^3/uL (1.2-6.7); Basophils % 0.9; Eosinophils % 4.9; HCT 43.9 % (40.0-50.0); HGB 14.7 g/dL (13.5-17.5); Immature Grans % 0.2; Lymphocytes % 41.3; MCH 28.1 pg (27.0-33.0); MCHC 33.5 % (32.0-36.0); MCV 84 fL (80-95); MPV 9.7 fL (8.0-11.0); Monocytes % 9.3; Neutrophils % 43.4; Platelet Count 267 10^3/uL (130-400); RBC 5.23 10^6/uL (4.36-5.78); RDW 14.3 % (11.8-14.1); RDW-SD 44.1 fL
[2023-07-16 14:33] LABS: Lactate 8.5 mmol/L (0.6-1.4)
[2023-07-16 14:48] LABS: ALT 24 U/L (16-63); AST 22 U/L (15-37); Albumin 4.3 g/dL (3.4-5.0); Alkaline Phosphatase 57 U/L (46-116); Anion Gap 17.6 mmol/L (3-11); BUN 6 mg/dL (7-18); Bilirubin, Total 1.9 mg/dL (0.2-1.0); CO2 19.4 mmol/L (21.0-32.0); Chloride 103 mmol/L (98-107); Estimated GFR 105.79 (mL/min/1.73m2); Glucose 85 mg/dL (74-106); Lipase 40 U/L (16-77); Potassium 3.5 mmol/L (3.5-5.1); Sodium 140 mmol/L (136-145)
--- NOTE | 2023-07-16 15:19 | DI.CT_ITS ---
Exam(s) CT HEAD WO EXAM: CT HEAD WO CLINICAL HISTORY: seziure. TECHNIQUE: Imaging Protocol: Axial computed tomography images with coronal and sagittal reformatted images were created and reviewed COMPARISON: No exams were available for comparison FINDINGS: Ventricles and Extra axial spaces: Normal in size and morphology for the patient's age. Hemorrhage: None. Cerebral parenchyma: Normal. Midline shift: None. Brainstem/Cerebellum: Normal. Calvarium: Normal. Visualized Paranasal sinuses/Mastoids: There is mucosal thickening in the maxillary sinuses bilateral ly. No fluid levels are seen in the visualized paranasal sinuses or mastoid air cells. Soft Tissues: Unremarkable. IMPRESSION: 1. No acute intracranial process. 2. Findings were discussed with the emergency department at 3:38 p.m. on 07/16/2023. RADIATION DOSE DELIVERED: 901.82mGy.cm Total DLP DATA REPOSITORY: All CT scans at this facility are submitted to the National Radiology Data Registry (NRDR) Dose Index Registry (DIR) with the [employer] ([employer]). RADIATION OPTIMIZATION: All CT scans at this facility use at least one of these dose optimization te chniques: automated exposure control; mA and/or kV adjustment per patient size (includes targeted exa ms where dose is matched to clinical indication); or iterative reconstruction.
--- NOTE | 2023-07-16 15:25 | DI.RAD_ITS ---
Exam(s) XR CHEST 1V IN DI DEPT EXAM: XR CHEST 1V IN DI DEPT CLINICAL HISTORY: seizure TECHNIQUE: 2D digital imaging was performed of the chest. One image was obtained. An AP view was ob tained. COMPARISON: CR,XR XR PORTABLE CHEST AP POST LINE from 06/17/2023 FINDINGS: MEDIASTINUM: Normal. HEART: Normal. PULMONARY VASCULATURE: Normal. LUNGS: Clear. PLEURAL SPACE: No pleural effusion or pneumothorax. BONE:Within normal limits for the patient's age. OTHER FINDINGS:Normal. IMPRESSION: No acute pulmonary findings. DATA REPOSITORY: RADIATION DOSE DELIVERED:
--- NOTE | 2023-07-16 17:23 | NUR.NOTE ---
Nursing Note: PT Needs follow up [facility] with neurology for seizure reoccurence. Gilda, ED
[2023-07-16 17:32] LABS: Bilirubin Negative (Negative); Blood Negative (Negative); Clarity Clear (Clear); Glucose Negative (Negative); Ketones 80 mg/dL (Negative); Leukocyte Esterase Negative (Negative); Nitrite Negative (Negative); Urobilinogen 0.2 mg/dL (Up to 0.2); pH 5.5 (5-8)
[2023-07-16 18:44] LABS: Lactate 0.8 mmol/L (0.6-1.4)
[2023-07-16 19:07] VITALS: BP 150/90; PULSE 102; RESP 17; TEMP 36.9; O2SAT 100
== END 2023-07-16 19:01 | disposition home or self-care (01) ==
PROVIDERS: Emergency Medicine Emergency Medical Services; Emergency Provider Physician Assistant; PCP Nurse Practitioner Family
DX: E10.9 Type 1 diabetes mellitus without complications (principal); R56.9 Unspecified convulsions
CPT/HCPCS: 36416; 80053; 82805; 82962; 83690; 87426; 93005; 96360; 99285; 70450; 71045; 81003; 83605; 83735; 85025; 93010; 99284

== ENCOUNTER 2023-08-24 15:58 | Emergency (ER) | payer OTHER, MEDICAID, SELFPAY ==
--- NOTE | 2023-08-24 15:45 | DI.CT_ITS ---
Exam(s) CT HEAD WO EXAM: CT HEAD WO CLINICAL HISTORY: seizure, head injury. TECHNIQUE: Imaging Protocol: Axial computed tomography images with coronal and sagittal reformatted images were created and reviewed COMPARISON: CT CT HEAD WO from 07/16/2023 FINDINGS: The examination is limited due to patient motion artifact. Ventricles and Extra axial spaces: Normal in size and morphology for the patient's age. Hemorrhage: None. Cerebral parenchyma: Normal. Midline shift: None. Brainstem/Cerebellum: Normal. Calvarium: Normal. Visualized Paranasal sinuses/Mastoids: Mild mucosal thickening. No air-fluid levels. The mastoid ai r cells are clear. Soft Tissues: Unremarkable. IMPRESSION: 1. No acute intracranial process. 2. Examination limited by patient motion artifact. 3. Findings were discussed with the emergency department at 4:55 p.m. on 08/24/2023. RADIATION DOSE DELIVERED: Total DLP DATA REPOSITORY: All CT scans at this facility are submitted to the National Radiology Data Registry (NRDR) Dose Index Registry (DIR) with the [employer] (ACR). RADIATION OPTIMIZATION: All CT scans at this facility use at least one of these dose optimization te chniques: automated exposure control; mA and/or kV adjustment per patient size (includes targeted exa ms where dose is matched to clinical indication); or iterative reconstruction.
[2023-08-24 15:56] VITALS: BP 139/56; PULSE 92; RESP 18; TEMP 36.7; O2SAT 99
--- NOTE | 2023-08-24 16:00 | ED.GENADUL_ITS ---
Discharge Plan Disposition Patient Disposition: Home Condition: Stable Discharge Details Clinical Impression: Seizure Primary Care Provider: Troy Anderson ED Provider: Lissa Contreras Home Meds and New Rx's Prescriptions: New levetiracetam [Keppra] 500 mg tablet 500 mg PO BID 30 Days Qty: 60 1RF Rx Instructions: Take 1 tablet by mouth twice daily for the next 30 days Continued fluoxetine 40 mg capsule 40 mg PO DAILY Qty: 90 3RF guanfacine PO Rx Instructions: 20 mg ER per [facility] melatonin 10 mg capsule 10 mg PO HS PRN triamcinolone acetonide 0.1 % cream 1 applic topical BID Qty: 30 3RF insulin lispro [Humalog Ananth KwikPen U-100] 100 unit/mL insulin pen, half- unit 1 sliding scale dose subcut USEASDIRECTD Rx Instructions: per [facility] 1-4 units four times a day insulin degludec [Tresiba U-100 Insulin] 100 unit/mL solution See Rx Instructions subcut DAILY Rx Instructions: 20-26 units subcutaneously daily; per [facility] discharge (DME) Dexcom G7 Sensor Device See Rx Instructions .Route Qty: 9 3RF Rx Instructions: Continuous Discharge Instructions Instructions: Recurrent Seizures in Adults (ED) Additional Instructions: At this time the head CT is within normal limits. I am going to start you on medication called Keppra 500 mg twice a day. Some of the side effects although rare, include fatigue dizziness and sometimes agitation and anxiety. You have been placed on a care management list to follow-up with neurologist Ruth Tobar within the next 5 days. Please call tomorrow and make an appointment. Please take the medication as directed. Follow up with primary care provider in 3-5 days. Return to ED sooner if any worsening or concerns. Increase oral fluids. Please take Tylenol or Ibuprofen with food every 4-6 hours as needed for pain and swelling. Referrals: Troy Anderson NP [Primary Care Provider] - 2 weeks Ruth Tobar MD [ [facility] STAFF PHYSICIAN] - 5 days (Recurrent Seizure) Discharge Data Discharge Date/Time-TO BE ENTERED AT DEPARTURE: 08/24/23 18:09 Medical Decision Making 28-year-old male presents to the ER via EMS with a chief complaint of seizure which was unwitnessed. Patient was at a coffee shop and began having a seizure. He is unsure why he was at the coffee shop. He does have some abrasions noted to the left side of his forehead, he did bite his tongue does have small amount of abrasion noted to his right lower lip and his right knuckles. He has no other complaints. He is not currently on any medications for seizures. He is a insulin-dependent diabetic. CBG was [facility] EMS prior to arrival. Other Pmhx includes autisim. CBC shows no leukocytosis, CMP largely within normal limits potassium slightly low at 3.4 anion gap slightly high at 16.6 bilirubin 1.5 AST 14 which is low, TSH 2.78 which is within normal limits urinalysis is pending at this time head CT within normal limits. Will consider Keppra and discuss this with patient. Patient would like to try Keppra and have a follow-up appointment with Dr. Tobar who he is seen before. He was placed on the care management list to get a follow-up appointment with neurology. We will give 500 mg of Keppra here in the department and prescribed Keppra twice a day. This text was generated using [employer] dictation system, please disregard any oddities of phrase or misspellings. Imaging Data Radiologic Study: Imaging: CT Scan Radiologist's impression: EXAM: CT HEAD WO CLINICAL HISTORY: seizure, head injury. TECHNIQUE: Imaging Protocol: Axial computed tomography images with coronal and sagittal reformatted images were created and reviewed COMPARISON: CT CT HEAD WO from 07/16/2023 FINDINGS: The examination is limited due to patient motion artifact. Ventricles and Extra axial spaces: Normal in size and morphology for the patient's age. Hemorrhage: None. Cerebral parenchyma: Normal. Midline shift: None. Brainstem/Cerebellum: Normal. Calvarium: Normal. Visualized Paranasal sinuses/Mastoids: Mild mucosal thickening. No air-fluid levels. The mastoid air cells are clear. Soft Tissues: Unremarkable. IMPRESSION: 1. No acute intracranial process. 2. Examination limited by patient motion artifact. 3. Findings were discussed with the emergency department at 4:55 p.m. on 08/24/2023. Lab Data Lab results reviewed: Yes I reviewed the patient's lab results. Labs: Laboratory Tests Range/Units 08/24/23 16:15 WBC (4.4-10.8) 10^3/uL 9.82 RBC (4.36-5.78) 10^6/uL 5.34 Hgb (13.5-17.5) g/dL 14.9 Hct (40.0-50.0) % 44.9 MCV (80-95) fL 84 MCH (27.0-33.0) pg 27.9 MCHC (32.0-36.0) % 33.2 RDW (11.8-14.1) % 13.0 Plt Count (130-400) 10^3/uL 272 MPV (8.0-11.0) fL 9.0 Immature Gran % 0.3 Neutrophils % 57.4 Lymphocytes % 31.8 Monocytes % 7.7 Eosinophils % 2.2 Basophils % 0.6 Nucleated RBC % (0.0-0.3) % 0.0 Absolute Neutrophils (1.2-6.7) 10^3/uL 5.63 Absolute Lymphocytes (1.2-3.4) 10^3/uL 3.12 Absolute Monocytes (0.1-0.8) 10^3/uL 0.76 Absolute Eosinophils (0.0-0.7) 10^3/uL 0.22 Absolute Basophils (0.0-0.2) 10^3/uL 0.06 Sodium (136-145) mmol/L 140 Potassium (3.5-5.1) mmol/L 3.4 L Chloride (98-107) mmol/L 103 Carbon Dioxide (21.0-32.0) mmol/L 20.4 L Anion Gap (3-11) mmol/L 16.6 H BUN (7-18) mg/dL 8 Creatinine (0.70-1.30) mg/dL 1.0 Est GFR (CKD-EPI 2020) (mL/min/1.73m2) 105.14 Glucose (74-106) mg/dL 96 Calcium (8.5-10.1) mg/dL 9.8 Magnesium (1.8-2.4) mg/dL 2.4 Total Bilirubin (0.2-1.0) mg/dL 1.5 H AST (15-37) U/L 14 L ALT (16-63) U/L 24 Alkaline Phosphatase (46-116) U/L 53 Total Protein (6.4-8.2) g/dL 7.9 Albumin (3.4-5.0) g/dL 4.4 TSH (0.36-3.74) uIU/mL 2.78 Ethyl Alcohol (<10) mg/dL < 3.0 HPI General Mode of arrival: EMS . Date/Time Provider Initiated Documentation: 08/24/23 16:32 . Limitations to Documentation: no limitations . Information obtained by: patient, EMS, RN notes reviewed and old records reviewed . HPI Narrative: 28-year-old male presents to the ER via EMS with a chief complaint of seizure which was unwitnessed. Patient was at a coffee shop and began having a seizure. He is unsure why he was at the coffee shop. He does have some abrasions noted to the left side of his forehead, he did bite his tongue does have small amount of abrasion noted to his right lower lip and his right knuckles. He has no other complaints. He is not currently on any medications for seizures. He is a insulin-dependent diabetic. CBG was 91[facility] EMS prior to arrival. Other Pmhx includes autisim. Related Data Home Medications Medication Instructions Recorded Confirmed melatonin 10 mg capsule 10 mg PO HS PRN 02/27/20 07/22/23 fluoxetine 40 mg capsule 40 mg PO DAILY #90 caps 03/13/21 07/22/23 insulin degludec 100 unit/mL See Rx Instructions subcut DAILY 06/25/23 07/22/23 subcutaneous solution (Tresiba U-100 Insulin) insulin lispro 100 unit/mL 1 sliding scale dose subcut 06/25/23 07/22/23 subcutaneous half-unit pen USEASDIRECTD (Humalog Ananth KwikPen (U-100)) guanfacine PO 07/02/23 07/22/23 triamcinolone acetonide 0.1 % 1 applic topical BID #30 grams 07/02/23 07/22/23 topical cream blood-glucose sensor (Rexlycom G7 #9 ea 08/06/23 Sensor device) levetiracetam 500 mg tablet 500 mg PO BID Seizure 30 days #60 08/24/23 (Keppra) tabs Previous Rx's Medication Instructions Recorded fluoxetine 40 mg capsule 40 mg PO DAILY #90 caps 03/13/21 triamcinolone acetonide 0.1 % 1 applic topical BID #30 grams 07/02/23 topical cream blood-glucose sensor (Dexcom G7 #9 ea 08/06/23 Sensor device) levetiracetam 500 mg tablet 500 mg PO BID Seizure 30 days #60 08/24/23 (Keppra) tabs Allergies Allergy/AdvReac Type Severity Reaction Status Date / Time No Known Allergies Allergy Verified 08/24/23 16:02 General YOAN: 3 Review of Systems All systems reviewed & are unremarkable except as noted in HPI and below Constitutional Constitutional: Reports as per HPI Eyes Eyes: Reports as per HPI Cardiovascular Cardiovascular: Denies chest pain and Denies dyspnea Respiratory Respiratory: Denies cough, Denies hemoptysis and Denies dyspnea Gastrointestinal Gastrointestinal: Denies abdominal pain, Denies diarrhea, Denies nausea and Denies vomiting Integumentary/Breasts Skin/Breast: Reports wounds (Superficial abrasions noted to face, forehead and right hand, ) Neurologic Neurologic: Reports convulsions PFSH All Active Problems (Updated 08/24/23 @ 17:22 by Lissa Contreras NP) Seizure (Acute) Diabetes type I (Acute) Leukocytosis (Acute) DKA (diabetic ketoacidosis) (Acute) Obesity (BMI 35.0-39.9 without comorbidity) (Acute) Depression (Chronic 12/17/14) ADHD (Acute) Autism (Acute) Medical History Seizure (12/17/14) Hx as child, but not anymore and no medicine. Surgical History Tonsillectomy and adenoidectomy Tooth extraction Family History Father Essential hypertension Mother Diabetes age 7 Asthma Brother No problems noted. Maternal Grandfather , age 53 Prostate cancer Paternal Grandfather , age 65 Throat cancer Heart disease Hyperlipidemia Hypertension Maternal Grandmother Hyperlipidemia Hypertension Paternal Grandmother , age 63 Brain cancer Social History Smoking/Tobacco Use Status: Never Second Hand Exposure: Yes Smoking risk assessment performed?: Yes Alcohol Intake: never Drug use: Never Substance use type: does not use Household members: family Housing: house Communication Needs: None Do you need help understanding health information?: Never Pets and animals: Yes Pets and animals: cat(s) and dog(s) Sexually active: No Do you think of yourself as: straight/heterosexual Current gender identity: male What is your relationship status?: refused to answer How often do you talk on the phone with friends or family?: decline to answer How often do you get together with friends or relatives?: decline to answer How often do you attend jehovah's witness or bahai services?: decline to answer Do you belong to any clubs or organized social groups?: decline to answer Panel score (0-1 are the most socially isolated patients): 0 What type of physical activity do you participate in: walking Duration: 60-90 minutes/day Frequency: 3-4 times per week Trin[place]/Hindu: No preference Special trinidad needs: No Seatbelt use: sometimes Helmet use: Yes Helmet use: always Drive intox or ride w/intox motor coach driver: No Do you feel safe at home: Yes Do you feel safe in your relationship?: Yes Exam Narrative Exam Narrative: Constitutional: Alert and oriented x3. Appears stated age. Normal body habitus. Head: Normocephalic, no palpated hematomas, superficial abrasion noted to left side of forehead, right face swelling. Eyes: Pupils PERRL, Red reflex noted, EOM's intact. Eyelids symmetrical without lesions, discharge, or swelling. ENT: Bilateral TM's WNL, External ear normal to inspection, no mastoid TTP, swelling, or erythema, Nasal turbinates WNL, no nasal discharge. Normal dentition, Posterior pharynx WNL, no exudate. No alcocer signs no epistaxis. Patient did bite the left side of his tongue. Bleeding controlled at this time. Chest: RRR, Normal S1, S2, distal pulses intact. Resp: Lungs clear to auscultation bilaterally, no wheezes, rales, or rhonchi. Abdomen: Soft, non-distended, Normoactive bowel sounds all 4 quads. Musculoskeletal: Normal gait, 5/5 strength to all four extremities. Skin: Capillary refill less than 2 sec. Neurologic: Cranial nerves II-XII intact. Alert and oriented x 3. Motor: No deficits noted. Sensory: Intact bilaterally all 4 extremities. Reflexes: DTR's intact bilaterally.. Hematologic/Lymphatic: No ecchymosis, no lymphadenopathy.
[2023-08-24] MEDS: LORazepam 2 MG/ML VIAL 0.5 MG IVP (16:15)
[2023-08-24] MEDS: Normal Saline Flush 10 ML SYR IVP (16:22)
[2023-08-24 16:23] LABS: Abs Immature Grans 0.03 10^3/uL (0.0-0.06); Absolute Basophil Count 0.06 10^3/uL (0.0-0.2); Absolute Eosinophil Count 0.22 10^3/uL (0.0-0.7); Absolute Lymphocyte Count 3.12 10^3/uL (1.2-3.4); Absolute Monocyte Count 0.76 10^3/uL (0.1-0.8); Absolute Neutrophil Count 5.63 10^3/uL (1.2-6.7); Basophils % 0.6; Eosinophils % 2.2; HCT 44.9 % (40.0-50.0); HGB 14.9 g/dL (13.5-17.5); Immature Grans % 0.3; Lymphocytes % 31.8; MCH 27.9 pg (27.0-33.0); MCHC 33.2 % (32.0-36.0); MCV 84 fL (80-95); Monocytes % 7.7; Neutrophils % 57.4; Platelet Count 272 10^3/uL (130-400); RBC 5.34 10^6/uL (4.36-5.78); RDW-SD 39.9 fL; WBC 9.82 10^3/uL (4.4-10.8)
[2023-08-24] MEDS: Normal Saline 1,000 ML 1000 ML IV (16:35)
[2023-08-24 16:53] LABS: ALT 24 U/L (16-63); AST 14 U/L (15-37); Albumin 4.4 g/dL (3.4-5.0); Alkaline Phosphatase 53 U/L (46-116); Anion Gap 16.6 mmol/L (3-11); BUN 8 mg/dL (7-18); Bilirubin, Total 1.5 mg/dL (0.2-1.0); CO2 20.4 mmol/L (21.0-32.0); Calcium 9.8 mg/dL (8.5-10.1); Chloride 103 mmol/L (98-107); Estimated GFR 105.14 (mL/min/1.73m2); Glucose 96 mg/dL (74-106); Magnesium 2.4 mg/dL (1.8-2.4); Potassium 3.4 mmol/L (3.5-5.1); Sodium 140 mmol/L (136-145); TSH (W/Ref FT4) 2.78 uIU/mL (0.36-3.74); Total Protein 7.9 g/dL (6.4-8.2)
[2023-08-24 16:55] LABS: ETHANOL BLOOD < 3.0 mg/dL (<10)
--- NOTE | 2023-08-24 17:14 | NUR.NOTE ---
Referral faxed to [facility] Neurology for recurrent seizure/starting on Keppra, in 5 days. Nursing Note:
[2023-08-24] MEDS: levETIRAcetam 500 MG TAB PO (17:24)
[2023-08-24 17:44] LABS: Bilirubin Negative (Negative); Blood Trace-intact (Negative); Clarity Clear (Clear); Glucose Negative (Negative); Ketones Trace mg/dL (Negative); Leukocyte Esterase Negative (Negative); Nitrite Negative (Negative); Specific Gravity >= 1.030 (1.005-1.025); Urobilinogen 0.2 mg/dL (Up to 0.2); pH 5.5 (5-8)
[2023-08-24 17:51] LABS: Bacteria Negative HPF (Negative); C & S Indicated? No; Crystals Negative HPF (Negative); Epithelial Cells Negative HPF (Negative); Mucus Trace (Negative); RBC 0-2 HPF (0-2); WBC 0-2 HPF (0-5)
[2023-08-24 17:55] LABS: *AMPHETAMINES SCREEN URINE Negative (Negative); *BARBITURATES SCREEN URINE Negative (Negative); *BENZODIAZEPINES SCREEN URINE Negative (Negative); Cannabinoids THC Negative (Negative); Cocaine Screen,Urine Negative (Negative); METHADONE URINE SCREEN Negative (Negative); OPIATES URINE SCREEN Negative (Negative)
[2023-08-24 17:57] LABS: Tricyclic Antidepressants Negative (Negative)
[2023-08-24 17:59] VITALS: BP 129/74; PULSE 76; TEMP 36.6; O2SAT 99
== END 2023-08-24 18:09 | disposition home or self-care (01) ==
PROVIDERS: Emergency Provider Registered Nurse Emergency; PCP Nurse Practitioner Family
DX: G40.909 Epilepsy, unspecified, not intractable, without status epilepticus (principal); S00.91XA Abrasion of unspecified part of head, initial encounter; S00.511A Abrasion of lip, initial encounter; S60.511A Abrasion of right hand, initial encounter; E11.9 Type 2 diabetes mellitus without complications; Z79.4 Long term (current) use of insulin; Z79.899 Other long term (current) drug therapy; W18.39XA Other fall on same level, initial encounter; Y93.89 Activity, other specified
CPT/HCPCS: 80053; 80307; 96361; 96374; 99284; 70450; 80320; 81003; 81015; 83735; 84443; 85025; J2060

== ENCOUNTER 2023-09-28 12:51 | Outpatient (CLI) | payer OTHER, MEDICAID, SELFPAY ==
[2023-09-28 09:15] LABS: CREATININE 0.9 mg/dL (0.70-1.30); Calculated LDL 120 mg/dL (<100); Cholesterol 177 mg/dL (<200); Estimated GFR 119.31 (mL/min/1.73m2); HDL Cholesterol 46 mg/dL (40-60); Potassium 3.8 mmol/L (3.5-5.1); Triglyceride 58 mg/dL (<150)
== END 2023-09-28 12:52 | disposition home or self-care (01) ==
LOC: LBO 12:52
PROVIDERS: PCP Nurse Practitioner Family; Visit Provider Nurse Practitioner Family
DX: N28.9 Disorder of kidney and ureter, unspecified (principal); Z13.220 Encounter for screening for lipoid disorders
CPT/HCPCS: 36415; 80061; 82565; 84132

== ENCOUNTER 2023-11-17 13:36 | Outpatient (CLI) | payer OTHER, MEDICAID, SELFPAY ==
[2023-11-17 11:57] LABS: Anion Gap 12.1 mmol/L (3-11); BUN 12 mg/dL (7-18); CO2 22.9 mmol/L (21.0-32.0); CREATININE 0.8 mg/dL (0.70-1.30); Calcium 9.5 mg/dL (8.5-10.1); Chloride 101 mmol/L (98-107); Estimated GFR 123.63 (mL/min/1.73m2); Glucose 123 mg/dL (74-106); Potassium 3.8 mmol/L (3.5-5.1); Sodium 136 mmol/L (136-145)
[2023-11-17 12:03] LABS: Hemoglobin A1C 6.3 % (<5.7)
[2023-11-18 17:35] LABS: C-Peptide 0.6 ng/mL (1.1 - 4.4)
[2023-11-22 11:21] LABS: GAD65 Ab Assay 0.43 nmol/L (<= 0.02)
== END 2023-11-17 13:37 | disposition home or self-care (01) ==
LOC: LBO 13:48
PROVIDERS: PCP Nurse Practitioner Family; Visit Provider Internal Medicine Endocrinology, Diabetes & Metabolism
DX: E10.65 Type 1 diabetes mellitus with hyperglycemia (principal)
CPT/HCPCS: 36415; 80048; 86341; 83036; 84681

== ENCOUNTER 2024-02-02 14:56 | Outpatient (CLI) | payer OTHER, MEDICAID, SELFPAY ==
[2024-02-02 15:33] LABS: Hemoglobin A1C 5.8 % (<5.7)
== END 2024-02-02 14:57 | disposition home or self-care (01) ==
LOC: LBO 14:56
PROVIDERS: PCP Nurse Practitioner Family; Visit Provider Internal Medicine Endocrinology, Diabetes & Metabolism
DX: E10.65 Type 1 diabetes mellitus with hyperglycemia (principal)
CPT/HCPCS: 36415; 83036

== ENCOUNTER 2024-03-22 12:55 | Outpatient (CLI) | payer OTHER, MEDICAID, SELFPAY ==
[2024-03-22 12:48] LABS: BUN 9 mg/dL (7-18); CREATININE 0.7 mg/dL (0.70-1.30); Calcium 9.3 mg/dL (8.5-10.1); Chloride 105 mmol/L (98-107); Estimated GFR 128.71 (mL/min/1.73m2); Glucose 67 mg/dL (74-106); Sodium 141 mmol/L (136-145)
[2024-03-27 00:25] LABS: GAD65 Ab Assay 0.49 nmol/L (<= 0.02)
== END 2024-03-22 12:56 | disposition home or self-care (01) ==
LOC: LBO 12:55
PROVIDERS: PCP Nurse Practitioner Family; Visit Provider Internal Medicine Endocrinology, Diabetes & Metabolism
DX: E10.65 Type 1 diabetes mellitus with hyperglycemia (principal)
CPT/HCPCS: 36415; 80048; 86341; 83036; 84681

== ENCOUNTER → 2024-05-22 02:06 | Outpatient (CLI) | payer OTHER, MEDICAID, SELFPAY ==
--- NOTE | 2024-05-22 08:00 | DI.MRI_ITS ---
Exam(s) MR BRAIN WO EXAM: MR BRAIN WO CLINICAL HISTORY: new seizures,r56.9 TECHNIQUE: Multiplanar multisequence MRI of the brain was performed. COMPARISON: CT CT HEAD WO from 07/16/[address] HEAD WO from 08/24/2023 FINDINGS: VENTRICLES AND EXTRA AXIAL SPACES: Normal in size and morphology for the patient's age. MIDLINE SHIFT: None. CEREBRAL PARENCHYMA: No focus of restricted diffusion to suggest acute infarct. No space-occupying le thao identified. HEMORRHAGE: None. BRAINSTEM/CEREBELLUM: Normal. VISUALIZED PARANASAL SINUSES/MASTOIDS:Mucosal thickening maxillary sinuses. Vasculature: Normal flow void. PITUITARY GLAND: Unremarkable. ORBITS: Unremarkable. IMPRESSION: Unremarkable MRI of the brain. DATA REPOSITORY:
== END ==
PROVIDERS: PCP Nurse Practitioner Family; Visit Provider Psychiatry & Neurology Neurology
DX: R56.9 Unspecified convulsions (principal)
CPT/HCPCS: 70551

== ENCOUNTER 2024-06-30 14:53 | Outpatient (CLI) | payer OTHER, MEDICAID, SELFPAY | END 2024-06-30 14:54 | disposition home or self-care (01) | LOC: LBO 14:57 | PROVIDERS: PCP Nurse Practitioner Family; Visit Provider Internal Medicine Endocrinology, Diabetes & Metabolism | DX: E10.65 Type 1 diabetes mellitus with hyperglycemia (principal) | CPT/HCPCS: 36415; 83036 ==

== ENCOUNTER 2024-09-26 14:02 | Outpatient (CLI) | payer OTHER, MEDICAID, SELFPAY ==
[2024-09-26 14:31] LABS: Hemoglobin A1C 6.4 % (<5.7)
== END 2024-09-26 14:03 | disposition home or self-care (01) ==
LOC: LBO 14:03
PROVIDERS: PCP Nurse Practitioner Family; Visit Provider Internal Medicine Endocrinology, Diabetes & Metabolism
DX: E10.65 Type 1 diabetes mellitus with hyperglycemia
CPT/HCPCS: 36415; 83036

== ENCOUNTER 2025-02-05 15:52 | Outpatient (CLI) | payer OTHER, MEDICAID, SELFPAY ==
[2025-02-05 16:05] LABS: Hemoglobin A1C 6.1 % (<5.7)
[2025-02-05 16:23] LABS: Anion Gap 6.4 mmol/L (3-11); BUN 8 mg/dL (7-18); CO2 28.6 mmol/L (21.0-32.0); CREATININE 0.8 mg/dL (0.70-1.30); Calcium 9.4 mg/dL (8.5-10.1); Chloride 106 mmol/L (98-107); Estimated GFR 122.86 (mL/min/1.73m2); Glucose 86 mg/dL (74-106); Sodium 141 mmol/L (136-145)
== END 2025-02-05 15:53 | disposition home or self-care (01) ==
LOC: LBO 15:52
PROVIDERS: PCP Nurse Practitioner Family; Visit Provider Internal Medicine Endocrinology, Diabetes & Metabolism
DX: E10.9 Type 1 diabetes mellitus without complications (principal)
CPT/HCPCS: 36415; 80048; 83036; 84681

== ENCOUNTER 2025-05-14 09:29 | Outpatient (CLI) | payer OTHER, MEDICAID, SELFPAY ==
[2025-05-14 09:13] LABS: Hemoglobin A1C 6.1 % (<5.7)
[2025-05-14 10:52] LABS: Calculated LDL 98 mg/dL (<100); Cholesterol 164 mg/dL (<200); HDL Cholesterol 55 mg/dL (>or=40); Triglyceride 56 mg/dL (<150)
== END 2025-05-14 09:30 | disposition home or self-care (01) ==
LOC: LBO 09:30
PROVIDERS: PCP Nurse Practitioner Family; Visit Provider Internal Medicine Endocrinology, Diabetes & Metabolism
DX: Z13.220 Encounter for screening for lipoid disorders (principal)
CPT/HCPCS: 36415; 80061; 83036

== ENCOUNTER 2025-08-10 18:53 | Outpatient (CLI) | payer OTHER, MEDICAID, SELFPAY ==
[2025-08-10 16:03] LABS: Hemoglobin A1C 6.3 % (<5.7)
== END 2025-08-10 18:54 | disposition home or self-care (01) ==
LOC: LBO 18:53
PROVIDERS: PCP Nurse Practitioner Family; Visit Provider Internal Medicine Endocrinology, Diabetes & Metabolism
DX: E10.9 Type 1 diabetes mellitus without complications (principal)
CPT/HCPCS: 36415; 83036